=== PATIENT | male | born 2000 | race African-American/Black ===

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

== ENCOUNTER 2020-08-05 11:05 | Inpatient (IN) | payer MEDICARE, MEDICAID ==
[~2020-08-05] VITALS: Ht 172.7 cm; Wt 133.2 kg
[2020-08-05] MEDS ORDERED: BUPR1TAB52 PO (13:10)
[2020-08-05] MEDS ORDERED: OXCA600T8 PO (13:10)
[2020-08-05 13:19] LABS: HEMATOCRIT 54.9 % (42.0-52.0); MEAN CORPUSCULAR HEMOGLOBIN 27.1 pg (27.0-33.0); MEAN CORPUSCULAR HGB CONC 32.8 g/dl (32.0-36.5); MEAN CORPUSCULAR VOLUME 82.6 fl (80.0-96.0); PLATELET COUNT, AUTOMATED 251 10^3/uL (150-450); RED BLOOD COUNT 6.65 10^6/uL (4.30-6.10); WHITE BLOOD COUNT 6.5 10^3/uL (4.0-10.0)
[2020-08-05 13:49] LABS: HCG, SERUM QUALITATIVE NEGATIVE
[2020-08-05 13:52] LABS: ACETAMINOPHEN LEVEL < 2.0 UG/ML (10.0-30.0); ALBUMIN 4.1 GM/DL (3.2-5.2); ALT/SGPT 60 U/L (12-78); BILIRUBIN,DIRECT 0.3 MG/DL (0.0-0.2); BILIRUBIN,TOTAL 1.4 MG/DL (0.2-1.0); BLOOD UREA NITROGEN 16 MG/DL (7-18); CARBON DIOXIDE LEVEL 30 MEQ/L (21-32); CHLORIDE LEVEL 107 MEQ/L (98-107); CREATININE FOR GFR 1.19 MG/DL (0.70-1.30); ETHYL ALCOHOL (ETHANOL) < 0.003 % (0.000-0.010); GLOMERULAR FILTRATION RATE > 60.0 (>60); GLUCOSE, FASTING 88 MG/DL (70-100); POTASSIUM SERUM 4.2 MEQ/L (3.5-5.1); SALICYLATE LEVEL < 1.7 MG/DL (5.0-30.0); SODIUM LEVEL 141 MEQ/L (136-145); TOTAL PROTEIN 7.1 GM/DL (6.4-8.2)
[2020-08-05 17:44] LABS: AMPHETAMINES LEVEL URINE NEGATIVE (NEGATIVE); BARBITURATES URINE NEGATIVE (NEGATIVE); BENZODIAZEPINES URINE NEGATIVE (NEGATIVE); CANNABINOIDS URINE NEGATIVE (NEGATIVE); COCAINE METABOLITE URINE NEGATIVE (NEGATIVE); METHADONE URINE NEGATIVE (NEGATIVE); OPIATES URINE NEGATIVE (NEGATIVE); PHENCYCLIDINE URINE NEGATIVE (NEGATIVE)
--- NOTE | 2020-08-05 20:37 | ECGEPIP ---
[facility] - ED Test Date: 2020-08-05 Pat Name: PRADEEP QUINTANA Department: Room: - Gender: Male [employer] Operator: : 2000 Requested By: NICKI Sanders Order Number: [id number] Reading MD: Katerine Cano Measurements Intervals [place] Rate: 91 P: 46 MS: 136 QRS: 45 QRSD: 109 T: 32 QT: 346 QTc: 426 Interpretive Statements SINUS RHYTHM IVCD NO PRIOR Electronically Signed on 08-05-2020 20:36:45 EDT by Katerine Cano
[2020-08-06] MEDS ORDERED: buPROPion 100 MG TAB PO SCH (09:00)
[2020-08-06] MEDS ORDERED: OXcarbazepine 300 MG TAB PO SCH (09:00)
[2020-08-06] MEDS ORDERED: OLANZapine ORAL DISINTEGRATING TAB 5MG PO PRN (15:30)
[2020-08-06] MEDS ORDERED: ACETAMINOPHEN TAB 650MG DOSE (2X325MG) PO PRN (15:30)
[2020-08-06] MEDS ORDERED: traZODone 50 MG TAB PO PRN (15:30)
[2020-08-06] MEDS ORDERED: MAALOX 30 ML SUSP *UDC PO PRN (15:30)
[2020-08-06] MEDS ORDERED: MOM 30ML SUSPENSION UDC PO PRN (15:30)
[2020-08-06 16:18] VITALS: BP 139/86
[2020-08-07 07:07] VITALS: BP 148/96
[2020-08-07] MEDS ORDERED: OXcarbazepine 300 MG TAB PO SCH (09:00)
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
--- NOTE | 2020-08-07 14:45 | MHDSPDOC ---
[facility] Discharge Summary Discharge Summary DATE OF ADMISSION: Aug 06, 2020 at 15:29 DATE OF DISCHARGE: DISCHARGE DIAGNOSES: Bipolar II Disorder REASON FOR ADMISSION: Patient self-presented to the hospital with a chief complaint of suicidal ideation. Instead of going to the psychiatric ([facility]) his mother suggested coming to the hospital. His suicidal ideation started on Wednesday and he confessed to his mother that he had two days of suicidal thoughts. He reports no suicidal gestures. CONSULTANTS INVOLVED: TREATMENT AND PROGRESS ON THE UNIT : Patient was afforded the following treatment modalities; 1) Individual Therapy, 2) Group Therapy, 3) Medication Management 4) Milieu Therapy 5) Safe Environment HOSPITAL COURSE: Patient admitted to [facility] for reported suicidal ideation that were continues for 2 days. He had reported his continued suicidal thoughts to his mother who urged him to be seen in the ED. DISCHARGE ASSESSMENT: Patient stated on his initial interview, "I am no longer suicidal, I am afraid of large crowds and it is more anxiety here for me." Patient has no recent suicidal gestures or attempts since age 12 years old. Patient was calm and cooperative in the interview. He was genuinely pleasant and presented with good insight and judgment. States that the acuity of the unit makes him nervous and feels that he would do better seeking therapy with his outpatient provider. We called his mother and she is in agreement that he is safe for discharge today. MENTAL STATUS EXAMINATION ON DISCHARGE: Patient is a 20-year old male, who is reporting no depression or suicidal ideation today at the initial psychiatric assessment. Speech is Spontaneous and conversant, normal rate, tone and volume Language skills are good Thought processes including: linear and good oriented. Thought content: no abnormal psych symptoms Abstract reasoning, and computation: none Description of associations: none Description of abnormal or psychotic thoughts: none Judgment: good Insight: good Orientation to alert and oriented Recent and remote memory: intact Attention span and concentration: good Language: good Fund of knowledge: average Mood: euthymic Affect: euthymic MEDICATIONS ON DISCHARGE: Wellbutrin SR 100 mg daily Trileptal 600 mg daily PLAN/FOLLOWUP ARRANGEMENTS: [facility], see master planner's notes. The amount of time spent in the coordination of care for this patient was appro ximately 15 minutes. Vital Signs/I&Os Vital Signs Date Time Temp Pulse Resp B/P (MAP) Pulse Ox O2 Delivery O2 Flow Rate FiO2 08/07/20 08:01 Room Air 08/07/20 07:07 97.2 87 18 148/96 (113) 94 Medications Scheduled Bupropion HCl (Bupropion HCl Sr) 100 Mg Tab.sr.12h, 100 MG PO DAILY, (Reported) Oxcarbazepine (Oxcarbazepine) 600 Mg Tablet, 600 MG PO DAILY, (Reported) Allergies Coded Allergies: haloperidol (Verified Allergy, Intermediate, DYSTONIA, 08/06/20) Sulfa (Sulfonamide Antibiotics) (Verified Allergy, Mild, RASH, 08/06/20) erythromycin base (Verified Allergy, Mild, RASH, 08/06/20) MARY GABRIEL NP Aug 07, 2020 14:45
[2020-08-07] MEDS ORDERED: buPROPion (WELLBUTRIN SR) 100 MG SR TAB PO SCH (21:00)
[2020-08-08] MEDS ORDERED: buPROPion 100 MG TAB PO SCH (09:00)
== END 2020-08-07 14:20 | disposition home or self-care (01) | DRG 885 ==
LOC: M ED 11:05 → M ED INP 08-06 15:29 → M PSY 08-06 16:40
PROVIDERS: ADMIT Psychiatry & Neurology Psychiatry; ATTEND Psychiatry & Neurology Psychiatry
DX: F31.81 Bipolar II disorder (principal); Z79.899 Other long term (current) drug therapy; Z88.2 Allergy status to sulfonamides; Z88.1 Allergy status to other antibiotic agents; Z88.8 Allergy status to other drugs, medicaments and biological substances; Z91.5 Personal history of self-harm

== ENCOUNTER 2024-12-11 21:29 | Inpatient (IN) | payer MEDICARE, MEDICAID ==
[~2024-12-11] VITALS: Ht 172.7 cm; Wt 104.0 kg
[~2024-12-11 21:29] MED LIST: BUPR1TAB52 PO; OXCA600T8 PO
[2024-12-11] MEDS ORDERED: BUPR1TAB56 PO (23:24)
[2024-12-11] MEDS ORDERED: ARIP1TAB10 PO (23:24)
[2024-12-11] MEDS ORDERED: CLON0.5T2 PO (23:24)
[2024-12-11] MEDS ORDERED: HOME MED LIST COMPLETE! XX SCH (23:25)
[2024-12-11] MEDS ORDERED: ACETAMINOPHEN 325 MG TAB PO PRN (23:50)
[2024-12-11] MEDS ORDERED: OLANZapine ORAL DISINTEGRATING TAB 5MG PO PRN (23:50)
[2024-12-11] MEDS ORDERED: LORazepam 1 MG TAB PO PRN (23:50)
[2024-12-11] MEDS ORDERED: IBUPROFEN 400MG TAB PO PRN (23:50)
[2024-12-11] MEDS ORDERED: MAALOX 30 ML SUSP *UDC PO PRN (23:50)
[2024-12-11] MEDS ORDERED: diphenhydrAMINE 25MG CAP PO PRN (23:50)
[2024-12-11] MEDS ORDERED: MOM 30ML SUSPENSION UDC PO PRN (23:50)
[2024-12-12 00:47] VITALS: BP 147/90; TEMP 97.9; O2SAT 98
[2024-12-12 06:33] VITALS: BP 143/83; TEMP 97; O2SAT 98
[2024-12-12] MEDS: NICOTINE 14 MG/24 HR TRANSDERMAL TD SCH (08:30)
[2024-12-12] MEDS ORDERED: clonazePAM 0.5 MG TAB PO PRN (11:55)
[2024-12-12 15:16] VITALS: BP 145/82; TEMP 98; O2SAT 96
[2024-12-13 06:24] VITALS: BP 127/60; TEMP 98.4; O2SAT 97
[2024-12-13 08:36] LABS: CHOLESTEROL RISK RATIO 3.72 (<5); HDL CHOLESTEROL 45.9 MG/DL (>40); LDL CHOLESTEROL 109.5 MG/DL (<100); NON-HDL-C 125.1 MG/DL
[2024-12-13] MEDS: OXcarbazepine 300 MG TAB PO SCH (08:46)
[2024-12-13] MEDS: buPROPion **XL** TABLET 150MG (WELLBUTRIN XL) PO SCH (08:46)
[2024-12-13 15:45] VITALS: BP 148/88; TEMP 98.1; O2SAT 97
[2024-12-14 06:39] VITALS: BP 129/76; TEMP 97.9; O2SAT 98
[2024-12-14 17:03] VITALS: BP 144/85; TEMP 98.2; O2SAT 98
[2024-12-14] MEDS: traZODone 50 MG TAB PO PRN (20:11)
[2024-12-15 06:47] VITALS: BP 144/77; TEMP 97.5; O2SAT 98
[2024-12-15] MEDS ORDERED: TRAZ-252 PO (08:40)
[2024-12-15] MEDS ORDERED: BUPR150T12 PO (08:40)
[2024-12-15] MEDS ORDERED: ABIL1TAB11 PO (08:40)
== END 2024-12-15 11:29 | disposition home or self-care (01) | DRG 885 ==
LOC: M ED 21:29 → M ED INP 23:47 → M PSY 12-12 00:33
PROVIDERS: ADMIT Psychiatry & Neurology Neurology; ATTEND Psychiatry & Neurology Neurology
DX: F31.30 Bipolar disorder, current episode depressed, mild or moderate severity, unspecified (principal); F40.00 Agoraphobia, unspecified; F41.9 Anxiety disorder, unspecified; Z91.51 Personal history of suicidal behavior; Z79.899 Other long term (current) drug therapy; Z88.1 Allergy status to other antibiotic agents; Z88.2 Allergy status to sulfonamides; Z88.8 Allergy status to other drugs, medicaments and biological substances

== ENCOUNTER 2025-06-25 11:20 | Emergency (ER) | payer MEDICARE, MEDICAID ==
[~2025-06-25] VITALS: Ht 172.7 cm; Wt 102.5 kg
[~2025-06-25 11:20] MED LIST changes: +ABIL1TAB11 PO; +ARIP1TAB10 PO; +BUPR-670 PO; +BUPR150T12 PO; -BUPR1TAB52 PO; +BUPR200T45 PO; +CLON0.5T2 PO; +TRAZ-252 PO
[2025-06-25] MEDS ORDERED: LEXA1TAB2 (11:41)
[2025-06-25] MEDS ORDERED: ARIP1TAB6 (11:41)
[2025-06-25] MEDS: AMPICILLIN SOD/SULBACTAM SOD 3 GM in DEXTROSE 5% (D5W) MINI-BAG PLU 100 ML IV ONE (14:25)
[2025-06-25] MEDS: KETOROLAC 30 MG/ML 1 ML VIAL IV ONE (14:26)
[2025-06-25 14:27] LABS: BASO # 0.0 10^3/uL (0.0-0.2); BASO % 0.3 % (0.0-1.0); EOS # 0.1 10^3/uL (0.0-0.5); EOS % 1.0 % (0.0-3.0); LYMPH # 1.2 10^3/uL (1.5-5.0); LYMPH % 11.2 % (24.0-44.0); MONO # 1.3 10^3/uL (0.0-0.8); MONO % 12.6 % (2.0-8.0); NEUTROPHILS # 7.8 10^3/uL (1.5-8.5); NEUTROPHILS % 74.1 % (36.0-66.0); PLATELET COUNT, AUTOMATED 197 10^3/uL (150-450)
[2025-06-25 14:44] LABS: ERYTHROCYTE SEDIMENTATION RATE 8 mm/hr (0-15)
[2025-06-25 15:04] LABS: CALCIUM LEVEL 9.3 MG/DL (8.5-10.1); CARBON DIOXIDE LEVEL 30 MMOL/L (20-31); CHLORIDE LEVEL 106 MMOL/L (98-107); CREATININE FOR GFR 1.13 MG/DL (0.70-1.30); GLOMERULAR FILTRATION RATE > 90.0 (>60); POTASSIUM SERUM 4.7 MMOL/L (3.5-5.1); SODIUM LEVEL 145 MMOL/L (136-145)
[2025-06-25 15:34] LABS: C REACTIVE PROTEIN QUANTITATIV 5.91 MG/DL (<1.0)
[2025-06-25] MEDS ORDERED: AMOX875T2 PO (17:07)
[2025-06-25] MEDS: TETANUS/DIPHTH/ACEL. PERTUSSIS 0.5 ML SYR IM.IMMUN ONE (17:16)
[2025-06-25 17:19] VITALS: BP 145/83; TEMP 98.6; O2SAT 98
== END 2025-06-25 17:22 | disposition home or self-care (01) ==
LOC: M ED 11:20
DX: S61.031A Puncture wound without foreign body of right thumb without damage to nail, initial encounter (principal); L03.011 Cellulitis of right finger; W55.01XA Bitten by cat, initial encounter; Y92.009 Unspecified place in unspecified non-institutional (private) residence as the place of occurrence of the external cause; Y93.89 Activity, other specified; Y99.9 Unspecified external cause status; Z88.1 Allergy status to other antibiotic agents; Z88.2 Allergy status to sulfonamides; Z23 Encounter for immunization
CPT/HCPCS: 73130; 80048; 85025; 85652; 86140; 87040; 90471; 90715; 96365; 96375; 99284; J0295; J1885